=== PATIENT | male | born 1970 | race Hispanic/Latino ===

== ENCOUNTER 2021-04-03 06:34 | Day surgery (SDC) | payer BC ==
[2021-04-02 11:51] LABS: BASOPHILS % (AUTO) 0.7 % (0.0-5.0); HEMATOCRIT 43.1 % (42-54); LYMPHOCYTES % (AUTO) 30.3 % (21.0-51.0); MEAN CORPUSCULAR HEMOGLOBIN 29.3 pg (27.0-33.0); MEAN CORPUSCULAR HGB CONC 33.9 g/dL (32.0-36.0); MEAN CORPUSCULAR VOLUME 86.4 fL (79-99); MONOCYTES % (AUTO) 6.4 % (3.0-13.0); NEUTROPHILS % (AUTO) 60.2 % (40.0-77.0); PLATELET COUNT (AUTO) 197 K/uL (130-400); RED BLOOD CELL COUNT(AUTO) 4.99 MIL/uL (4.50-6.20); RED CELL DISTRIBUTION WIDTH 12.1 % (11.0-15.5); WHITE BLOOD COUNT (AUTO) 8.4 K/uL (4.8-10.8)
[2021-04-02 11:58] LABS: CREATININE 0.8 mg/dL (0.5-1.5)
[2021-04-02 15:02] VITALS: BP 152/80
[2021-04-03] VITALS (17 sets, daily range): BP systolic 95–150; BP diastolic 44–84
[~2021-04-03] VITALS: Ht 167.6 cm; Wt 112.9 kg
[~2021-04-03 06:34] MED LIST: CARV6.25 PO; CEFAZOLIN 3GM /D5W 100ML 100 ML IV SCH; DOXA4TAB3 PO; IBUP-2077 PO; LOSA100T58 PO; METF-446 PO; ROSU10TA28 PO
[2021-04-03] MEDS ORDERED: 0.9%NACL 1000ML 1,000 ML IV ONE (07:04)
[2021-04-03] MEDS ORDERED: INSULIN HUMULIN R 100 UNIT/ML 3ML ONE (07:24)
[2021-04-03] MEDS ORDERED: ONDANSETRON 4MG INJ ONE (07:34)
[2021-04-03] MEDS ORDERED: LIDOCAINE PF 100MG/5ML (2%) SYRINGE 5ML ONE (07:34)
[2021-04-03] MEDS ORDERED: DEXAMETHASONE SOD PHOSPHATE 10MG/ML 1ML VIAL ONE (07:35)
[2021-04-03] MEDS: CEFAZOLIN SODIUM 1 GM VIAL ONE ×2 (07:35→08:21)
[2021-04-03] MEDS ORDERED: FENTANYL CITRATE PF 50 MCG/1 ML 2ML VIAL ONE (07:35)
[2021-04-03] MEDS ORDERED: PROPOFOL 10 MG/ML 20ML VIAL IV ONE (07:35)
[2021-04-03] MEDS ORDERED: MIDAZOLAM HCL 1 MG/ML 2ML VIAL ONE (07:35)
[2021-04-03] MEDS ORDERED: MEPERIDINE-PF 25 MG/ML SYG ONE (07:36)
[2021-04-03] MEDS ORDERED: CEFAZOLIN SODIUM 1 GM VIAL IVP ONE (08:21)
[2021-04-03] MEDS ORDERED: EPHEDRINE SULFATE 50 MG/ML AMPULE ONE (08:47)
[2021-04-03] MEDS ORDERED: KETOROLAC 30MG VIAL (30MG/ML) ONE (09:04)
[2021-04-03] MEDS ORDERED: ACET1TAB25 PO (09:23)
[2021-04-03] MEDS ORDERED: CEPH500B PO (09:23)
== END 2021-04-03 10:50 | disposition home or self-care (01) ==
LOC: DAH 06:34
PROVIDERS: ATTEND Orthopaedic Surgery
DX: M23.300 Other meniscus derangements, unspecified lateral meniscus, right knee (principal); Z20.822 Contact with and (suspected) exposure to COVID-19; M17.11 Unilateral primary osteoarthritis, right knee; M23.321 Other meniscus derangements, posterior horn of medial meniscus, right knee; G89.29 Other chronic pain; I10 Essential (primary) hypertension; E11.9 Type 2 diabetes mellitus without complications; G47.30 Sleep apnea, unspecified; E66.01 Morbid (severe) obesity due to excess calories; E78.5 Hyperlipidemia, unspecified; Z98.890 Other specified postprocedural states; Z68.41 Body mass index [BMI] 40.0-44.9, adult; Z79.899 Other long term (current) drug therapy; Z82.61 Family history of arthritis; Z83.3 Family history of diabetes mellitus; Z82.49 Family history of ischemic heart disease and other diseases of the circulatory system; Z79.84 Long term (current) use of oral hypoglycemic drugs
CPT/HCPCS: 29880; 36415; 80048; 82948 ×2; 85025; 87635; A4213; A4215; A4221; A4222; A4223; A4649 ×2; A4663; A4930; A5120; A6223; C9803; J0690 ×2; J1100; J1815; J1885; J2001; J2175; J2250; J2405; J2704; J3010; J3490; J7030; J7120